=== PATIENT | female | born 1960 | race African-American/Black ===

== ENCOUNTER 2016-09-20 09:17 | Inpatient (IN) | payer OTHER ==
[2016-09-20 09:42] VITALS: BMI 21.6
--- NOTE | 2016-09-20 09:55 | HP ---
CIWA Score - CIWA Score Nausea/Vomitin-Mild Nausea/No Vomiting Muscle Tremors: 3 Anxiety: 4-Mod. Anxious/Guarded Agitation: 1-Slight > Activity Paroxysmal Sweats: 1-Minimal Palms Moist Orientation: 1-Uncertain about Date Tacttile Disturbances: 1-Very Mild Itch/Numbness Auditory Disturbances: 1-Very Mild Visual Disturbances: 1-Very Mild Sensitivity Headache: 2-Mild CIWA-Ar Total Score: 16 Admission ROS BHS - HPI Chief Complaint: I need help to stop drinking, I don't want to get sick Allergies/Adverse Reactions: Allergies Allergy/AdvReac Type Severity Reaction Status Date / Time shellfish derived Allergy Severe Swelling Verified 09/20/16 09:53 No Known Drug Allergies Allergy Verified 09/20/16 09:53 History of Present Illness: 56 yo woman here for detox from alcohol - history of seizure - was in [facility] ED yesterday for seizure - history of black outs. Previously here twice and stayed only one day - states she will complete her treatment this time. Exam Limitations: Clinical Condition - Ebola screening Have you traveled outside of the country in the last 21 days: No Have you had contact with anyone from an Ebola affected area: No Have you been sick,other than usual withdrawal symptoms: No Do you have a fever: No - Review of Systems Constitutional: Loss of Appetite, Night Sweats, Changes in sleep EENT: reports: No Symptoms Reported Respiratory: reports: No Symptoms reported Cardiac: reports: No Symptoms Reported GI: reports: Nausea, Indigestion : reports: Frequency Musculoskeletal: reports: No Symptoms Reported Integumentary: reports: Dryness Neuro: reports: Headache Endocrine: reports: No Symptoms Reported Hematology: reports: No Symptoms Reported Psychiatric: reports: Mood/Affect Appropiate, Agitated, Anxious Other Systems: Reviewed and Negative Patient History - Patient Medical History Hx Anemia: No Hx Asthma: Yes (proventil) Hx Chronic Obstructive Pulmonary Disease (COPD): No Hx Cancer: No Hx Cardiac Disorders: No Hx Congestive Heart Failure: No Hx Hypertension: Yes Hx Hypercholesterolemia: No Hx Pacemaker: No HX Cerebrovascular Accident: No Hx Seizures: Yes (seizure yesterday in [facility] ED) Hx Dementia: No Hx Diabetes: No Hx Gastrointestinal Disorders: No Hx Liver Disease: No Hx Genitourinary Disorders: No Hx Sexually Transmitted Disorders: No Hx Renal Disease (ESRD): No Hx Thyroid Disease: No Hx Human Immunodeficiency Virus (HIV): No Hx Hepatitis C: No Hx Depression: Yes Hx Suicide Attempt: Yes (not sure a few weeks ago - hospitalized [facility]3] x 2 days) Hx Bipolar Disorder: Yes Hx Schizophrenia: No - Patient Surgical History Past Surgical History: Yes Hx Neurologic Surgery: No Hx Cataract Extraction: No Hx Cardiac Surgery: No Hx Lung Surgery: No Hx Breast Surgery: No Hx Breast Biopsy: No Hx Abdominal Surgery: Yes (exp. lap - 2011) Hx Appendectomy: No Hx Cholecystectomy: No Hx Genitourinary Surgery: No Hx Section: Yes (X 1 - 12 YRS. AGO) Hx Orthopedic Surgery: No Anesthesia Reaction: No - PPD History Previous Implant?: Yes Implanted On Prior [facility] Admission?: Yes Date: 02/11/16 PPD to be Administered?: Yes - Reproductive History Patient is a Female of Child Bearing Age (11 -55 yrs old): Yes Last Menstrual Period: 04/08/10 Patient : No - Smoking Cessation Smoking history: Current every day smoker Have you smoked in the past 12 months: Yes Aproximately how many cigarettes per day: 2 Hx Chewing Tobacco Use: No Initiated information on smoking cessation: Yes 'Breaking Loose' booklet given: 09/20/16 (give on floor) - Substance & Tx. History Hx Alcohol Use: Yes Hx Substance Use: No Substance Use Type: Alcohol Hx Substance Use Treatment: Yes (detox) - Substances Abused Alcohol Route: Oral Frequency: Daily Amount used: 1 pint Age of first use: 24 Date of Last Use: 09/19/16 Family Disease History - Family Disease History Family Disease History: [place]: Father ( FROM [place]), Other: Mother ('delusional' ) , Sister (ETOH DEPENDENT ), Daughter (X 3 - DEPENDENT ON ETOH AND MARIJUANA ) Admission Physical Exam BHS - Vital Signs Vital Signs: Vital Signs - 24 hr 09/20/16 09:33 Temperature 96.1 F L Pulse Rate 86 Respiratory 18 Rate Blood Pressure 118/69 - Physical General Appearance: Yes: Nourished, Appropriately Dressed, Mild Distress, Other (no teeth) HEENTM: Yes: EOMI, Normal ENT Inspection, Normocephalic, Normal Voice Respiratory: Yes: Normal Breath Sounds, No Respiratory Distress Neck: Yes: No masses,lesions,Nodules, Trachea in good position Breast: Yes: Breast Exam Deferred Cardiology: Yes: Regular Rhythm, Regular Rate Abdominal: Yes: Soft Genitourinary: Yes: Frequency Back: Yes: Normal Inspection Musculoskeletal: Yes: full range of Motion, Gait Steady Extremities: Yes: Normal Inspection, Normal Range of Motion, Non-Tender Neurological: Yes: Fully Oriented, Alert, Normal Mood/Affect, Normal Response Integumentary: Yes: Normal Color, Dry, Warm Lymphatic: Yes: Within Normal Limits - Diagnostic (1) Alcohol dependence with uncomplicated withdrawal Current Visit: Yes Status: Chronic (2) HTN (hypertension) Current Visit: Yes Status: Chronic Qualifiers: Hypertension type: essential hypertension Qualified Code(s): I10 - Essential (primary) hypertension (3) Seizure disorder Current Visit: Yes Status: Chronic (4) Asthma Current Visit: Yes Status: Chronic Qualifiers: Asthma severity: mild intermittent Asthma complication type: uncomplicated Qualified Code(s): J45.20 - Mild intermittent asthma, uncomplicated Cleared for Admission S - Detox or Rehab [facility] Level of Care: Medically Managed Detox Regimen/Protocol: Librium [facility] Breath Alcohol Content Breath Alcohol Content: 0 Urine Pregancy Test - Result Urine Test Results: Negative- NO Line Present Urine Drug Screen - Results Drug Screen Negative: No Urine Drug Screen Results: BZO-Benzodiazepines, TCA-Tricyclic Antidepress
[2016-09-20] MEDS ORDERED: MAGNESIUM CITRATE 300 ML BOTTLE PO PRN (10:02)
[2016-09-20] MEDS ORDERED: MAG HYDROX/AL HYDROX/SIMETH 30 ML UNIT-DOSE CUP PO PRN (10:02)
[2016-09-20] MEDS ORDERED: guaiFENesin/D-METHORPHAN HB 10 ML UNIT-DOSE CUPS PO PRN (10:02)
[2016-09-20] MEDS ORDERED: MENTHOL/PHENOL 1 EACH UD MM PRN (10:02)
[2016-09-20] MEDS ORDERED: ACETAMINOPHEN 325 MG TABLET (FP) PO PRN (10:02)
[2016-09-20] MEDS ORDERED: MAGNESIUM HYDROX 2400MG/30ML ORAL SUSPENSION 30 ML CUP PO PRN (10:02)
[2016-09-20] MEDS ORDERED: IBUPROFEN 400 MG TABLET (FP) PO PRN (10:02)
[2016-09-20] MEDS ORDERED: P-EPHED 60MG/TRIPROLIDI 2.5MG TABLET PO PRN (10:02)
[2016-09-20] MEDS ORDERED: ALBUTEROL SO4 6.7 GM HFA INHALER IH PRN (10:04)
[2016-09-20] MEDS ORDERED: NICOTINE POLACRILEX 2 MG GUM BUC PRN (10:06)
[2016-09-20] MEDS ORDERED: chlordiazePOXIDE HCL 25 MG CAPSULE PO ONE (11:15)
[2016-09-20] MEDS: NICOTINE 7 MG/24 HOURS TOPICAL PATCH TD SCH (11:24)
[2016-09-20 13:40] LABS: URINE APPEARANCE SLCLOUDY; URINE BILIRUBIN NEGATIVE (NEGATIVE); URINE BLOOD NEGATIVE (NEGATIVE); URINE COLOR DKYELLOW; URINE GLUCOSE (UA) NEGATIVE (NEGATIVE); URINE KETONE NEGATIVE (NEGATIVE); URINE NITRITE NEGATIVE (NEGATIVE); URINE PROTEIN NEGATIVE (NEGATIVE); URINE UROBILINOGEN 2.0 E.U/dl E.U./dl (0.2-1.0)
[2016-09-20 13:43] LABS: URINE LEUK ESTERASE TRACE (NEGATIVE)
[2016-09-20 13:48] LABS: URINE BACTERIA RARE /hpf (NONE SEEN); URINE MUCUS MODERATE; URINE RBC <1 /hpf (0-3); URINE WBC 4 /hpf (3-5); YEAST FEW
[2016-09-20] MEDS: chlordiazePOXIDE HCL 25 MG CAPSULE PO SCH ×2 (17:17→22:36)
[2016-09-20] MEDS ORDERED: diphenhydrAMINE HCL 50 MG CAPSULE PO PRN (22:00)
[2016-09-20] MEDS: THIAMINE HCL 100 MG TABLET (FP) PO SCH (22:36)
[2016-09-20] MEDS: levETIRAcetam 500 MG TABLET (FP) PO SCH (22:36)
[2016-09-20] MEDS: QUEtiapine FUMARATE 50 MG TABLET PO SCH (22:36)
[2016-09-21] MEDS: chlordiazePOXIDE HCL 25 MG CAPSULE PO SCH ×4 (05:55→22:31)
[2016-09-21] MEDS: PRENATAL VITAMINS W/ FOLIC ACID TABLET (FP) PO SCH (09:17)
[2016-09-21] MEDS: amLODIPine BESYLATE 10 MG TABLET (FP) PO SCH (09:18)
[2016-09-21] MEDS: chlordiazePOXIDE HCL 25 MG CAPSULE PO PRN (09:18)
[2016-09-21] MEDS: hydrOXYzine PAMOATE 50 MG CAPSULE (FP) PO PRN ×3 (09:18→22:31)
[2016-09-21] MEDS: ATENOLOL 50 MG TABLET (FP) PO SCH (09:18)
[2016-09-21] MEDS: levETIRAcetam 500 MG TABLET (FP) PO SCH ×2 (09:21→22:31)
[2016-09-21] MEDS: NICOTINE 7 MG/24 HOURS TOPICAL PATCH TD SCH (09:23)
--- NOTE | 2016-09-21 09:47 | EKG ---
Test Reason : Blood Pressure : / mmHG Vent. Rate : 094 BPM Atrial Rate : 094 BPM P-R Int : 270 ms QRS Dur : 098 ms QT Int : 364 ms P-R-T Axes : 068 056 064 degrees QTc Int : 455 ms SINUS RHYTHM WITH 1ST DEGREE A-V BLOCK MODERATE VOLTAGE CRITERIA FOR LVH, MAY BE NORMAL VARIANT EARLY REPOLARIZATION Confirmed by SANTIAGO ZAVALA MD ([id number]) on 09/21/2016 9:47:11 AM Referred By: Confirmed By:SANTIAGO ZAVALA MD
[2016-09-21 10:19] LABS: MCHC 32.2 g/dl (32.0-36.0); RDW 15.9 % (11.6-15.6); WHITE BLOOD COUNT 4.7 K/mm3 (4.0-10.0)
[2016-09-21 10:38] LABS: ALBUMIN 3.8 g/dl (3.4-5.0); ANION GAP 12 (8-16); CALCIUM 8.5 mg/dL (8.5-10.1); CO2 21 mmol/L (21-32); CREATININE 0.7 mg/dL (0.55-1.02); GLUCOSE,RANDOM 121 mg/dL (74-106); SGPT/ALT 17 U/L (12-78)
[2016-09-21 10:40] LABS: ALK PHOS 104 U/L (45-117); BILIRUBIN,TOTAL 0.5 mg/dL (0.2-1.0); TOT PROT 7.1 g/dl (6.4-8.2)
[2016-09-21 10:49] LABS: SGOT/AST 39 U/L (15-37)
[2016-09-21 11:04] LABS: PLATELET ESTIMATE MOD DECREASED (NORMAL)
--- NOTE | 2016-09-21 14:56 | PN ---
[facility] CIWA - CIWA Score Nausea/Vomitin-No Nausea/No Vomiting Muscle Tremors: 4-Moderate,w/Arms Extend Anxiety: 4-Mod. Anxious/Guarded Agitation: 4-Moderately Restless Paroxysmal Sweats: 3 Orientation: 0-Oriented Tacttile Disturbances: 1-Very Mild Itch/Numbness Auditory Disturbances: 0-None Visual Disturbances: 0-None Headache: 0-None Present CIWA-Ar Total Score: 16 BHS Progress Note (SOAP) Subjective: ANXIETY,TREMORS,SWEATING,INTERRUPTED SLEEP,RESTLESS Objective: 09/21/16 14:55 Vital Signs - 8 hr 09/21/16 09/21/16 10:59 14:00 Temperature 99.0 F 97.7 F Pulse Rate 88 75 Respiratory 18 18 Rate Blood Pressure 133/90 145/94 Laboratory Last Values WBC 4.7 K/mm3 (4.0-10.0) 09/21/16 07:20 RBC 4.59 M/mm3 (3.60-5.2) 09/21/16 07:20 Hgb 12.8 GM/dL (10.7-15.3) 09/21/16 07:20 Hct 39.9 % (32.4-45.2) 09/21/16 07:20 MCV 87.0 fl (80-96) 09/21/16 07:20 MCHC 32.2 g/dl (32.0-36.0) 09/21/16 07:20 RDW 15.9 % (11.6-15.6) H D 09/21/16 07:20 Plt Count Civil Engineering Director 09/21/16 07:20 MPV 9.0 fl (7.5-11.1) 09/21/16 07:20 Platelet Estimate Mod decreased (NORMAL) 09/21/16 07:20 Platelet Comment Marked plt clumping 09/21/16 07:20 Sodium 144 mmol/L (136-145) 09/21/16 07:20 Potassium 3.9 mmol/L (3.5-5.1) 09/21/16 07:20 Chloride 111 mmol/L (98-107) H 09/21/16 07:20 Carbon Dioxide 21 mmol/L (21-32) D 09/21/16 07:20 Anion Gap 12 (8-16) 09/21/16 07:20 BUN 8 mg/dL (7-18) 09/21/16 07:20 Creatinine 0.7 mg/dL (0.55-1.02) 09/21/16 07:20 Creat Clearance w eGFR > 60 (>60) 09/21/16 07:20 Random Glucose 121 mg/dL (74-106) H D 09/21/16 07:20 Calcium 8.5 mg/dL (8.5-10.1) 09/21/16 07:20 Total Bilirubin 0.5 mg/dL (0.2-1.0) 09/21/16 07:20 AST 39 U/L (15-37) H D 09/21/16 07:20 ALT 17 U/L (12-78) 09/21/16 07:20 Alkaline Phosphatase 104 U/L (45-117) 09/21/16 07:20 Total Protein 7.1 g/dl (6.4-8.2) 09/21/16 07:20 Albumin 3.8 g/dl (3.4-5.0) 09/21/16 07:20 Urine Color Dkyellow 09/20/16 10:10 Urine Appearance Slcloudy 09/20/16 10:10 Urine pH 5.0 (5.0-8.0) 09/20/16 10:10 Ur Specific [place] 1.026 (1.001-1.035) 09/20/16 10:10 Urine Protein Negative (NEGATIVE) 09/20/16 10:10 Urine Glucose (UA) Negative (NEGATIVE) 09/20/16 10:10 Urine Ketones Negative (NEGATIVE) 09/20/16 10:10 Urine Blood Negative (NEGATIVE) 09/20/16 10:10 Urine Nitrite Negative (NEGATIVE) 09/20/16 10:10 Urine Bilirubin Negative (NEGATIVE) 09/20/16 10:10 Urine Urobilinogen 2.0 e.u/dl E.U./dl (0.2-1.0) H 09/20/16 10:10 Ur Leukocyte Esterase Trace (NEGATIVE) H 09/20/16 10:10 Urine RBC <1 /hpf (0-3) 09/20/16 10:10 Urine WBC 4 /hpf (3-5) 09/20/16 10:10 Ur Epithelial Cells Moderate /hpf (FEW) 09/20/16 10:10 Urine Bacteria Rare /hpf (NONE SEEN) 09/20/16 10:10 Urine Mucus Moderate 09/20/16 10:10 Urine Yeast Few 09/20/16 10:10 RPR Titer Nonreactive (NONREACTIVE) 09/21/16 07:20 LABS NOTED Assessment: 09/21/16 14:56 WITHDRAWAL SX. Plan: CONTINUE DETOX
[2016-09-21] MEDS: QUEtiapine FUMARATE 50 MG TABLET PO SCH (22:32)
[2016-09-21] MEDS: THIAMINE HCL 100 MG TABLET (FP) PO SCH (22:32)
[2016-09-22] MEDS: chlordiazePOXIDE HCL 25 MG CAPSULE PO SCH ×2 (04:52→10:13)
--- NOTE | 2016-09-22 08:57 | CONSULT ---
[facility] Psychiatric Consult - Data Date of interview: 09/22/16 Admission source: [facility] Identifying data: This is 56 years old female with psychiatric hospitalization history iontoxiated with Alcohol and Nicotine Substance Abuse History: - Smoking Cessation. Smoking history: Current every day smoker. Have you smoked in the past 12 months: Yes. Aproximately how many cigarettes per day: 2. Hx Chewing Tobacco Use: No. Initiated information on smoking cessation: Yes. 'Breaking Loose' booklet given: 09/20/16 (give on floor ). - Substance & Tx. History. Hx Alcohol Use: Yes. Hx Substance Use: No. Substance Use Type: Alcohol. Hx Substance Use Treatment: Yes (detox). - Substances Abused. Alcohol. Route: Oral. Frequency: Daily. Amount used: 1 pint. Age of first use: 24. Date of Last Use: 09/19/16 Medical History: Asthma, HTN, Seizure history Psychiatric History: Patient reports history of Bipolar disorder, anxiety and insomnia, reports unclear psychiatric admission for more then 5 years ago at unknown hospital reports taking prior to admission: Seroquel 50mg po qhs Physical/Sexual Abuse/Trauma History: Denies Additional Comment: Seroquel 50mg po qhs Mental Status Exam - Mental Status Exam Alert and Oriented to: Person Cognitive Function: Fair Patient Appearance: Unkempt Mood: Sad Affect: Flat Patient Behavior: Sedated Speech Pattern: Delayed Voice Loudness: Mildly Soft/Quiet Thought Process: Circumstantial Thought Disorder: Being Controlled Hallucinations: Denies Suicidal Ideation: Denies Homicidal Ideation: Denies Insight/Judgement: Fair Sleep: Difficulty falling asleep Appetite: Fair, Weight gain Muscle strength/Tone: Normal Gait/Station: Shuffling Additional Comments: Seroquel 50mg po qhs Psychiatric Findings - Problem List ([address] 1, 2,3) (1) Alcohol dependence with uncomplicated withdrawal Current Visit: Yes Status: Chronic (2) Alcohol-induced mood disorder Current Visit: No Status: Acute (3) Alcohol-induced sleep disorder Current Visit: No Status: Acute (4) Alcohol dependence Current Visit: No Status: Chronic (5) Anxiety disorder Current Visit: No Status: Chronic Qualifiers: Anxiety disorder type: unspecified anxiety disorder Qualified Code(s): F41.9 - Anxiety disorder, unspecified (6) Bipolar disorder Current Visit: No Status: Chronic Qualifiers: Active/Remission status: remission status unspecified Qualified Code(s) : F31.9 - Bipolar disorder, unspecified (7) Nicotine dependence Current Visit: Yes Status: Acute - Initial Treatment Plan Initial Treatment Plan: Seroquel 50mg po qhs
[2016-09-22] MEDS: amLODIPine BESYLATE 10 MG TABLET (FP) PO SCH (10:13)
[2016-09-22] MEDS: PRENATAL VITAMINS W/ FOLIC ACID TABLET (FP) PO SCH (10:13)
[2016-09-22] MEDS: levETIRAcetam 500 MG TABLET (FP) PO SCH ×2 (10:13→22:17)
[2016-09-22] MEDS: ATENOLOL 50 MG TABLET (FP) PO SCH (10:13)
[2016-09-22] MEDS: NICOTINE 7 MG/24 HOURS TOPICAL PATCH TD SCH (10:16)
[2016-09-22] MEDS ORDERED: ZOLPIDEM TARTRATE 5 MG TABLET PO PRN (11:13)
--- NOTE | 2016-09-22 11:15 | PN ---
S CIWA - CIWA Score Nausea/Vomitin-Int. Nausea w/Dry Heave Muscle Tremors: 4-Moderate,w/Arms Extend Anxiety: 4-Mod. Anxious/Guarded Agitation: 4-Moderately Restless Paroxysmal Sweats: 3 Orientation: 0-Oriented Tacttile Disturbances: 0-None Auditory Disturbances: 0-None Visual Disturbances: 0-None Headache: 2-Mild CIWA-Ar Total Score: 21 BHS Progress Note (SOAP) Subjective: nausea, sweats, interrupted sleep, anxiety, tremors Objective: 09/22/16 11:14 Vital Signs - 24 hr 09/21/16 09/21/16 09/21/16 14:00 18:02 21:50 Temperature 97.7 F 97.7 F 98.1 F Pulse Rate 75 89 76 Respiratory 18 18 18 Rate Blood Pressure 145/94 129/87 139/75 09/22/16 09/22/16 09/22/16 00:30 05:05 10:26 Temperature 97.0 F L 97.0 F L Pulse Rate 74 84 Respiratory 18 18 18 Rate Blood Pressure 137/90 149/95 Laboratory Tests 09/20/16 09/21/16 09/21/16 10:10 07:20 07:20 WBC 4.7 RBC 4.59 Hgb 12.8 Hct 39.9 MCV 87.0 MCHC 32.2 RDW 15.9 H D Plt Count [employer] MPV 9.0 Platelet Estimate Mod decreased Platelet Comment Marked plt clumping Sodium 144 Potassium 3.9 Chloride 111 H Carbon Dioxide 21 D Anion Gap 12 BUN 8 Creatinine 0.7 Creat Clearance w eGFR > 60 Random Glucose 121 H D Calcium 8.5 Total Bilirubin 0.5 AST 39 H D ALT 17 Alkaline Phosphatase 104 Ammonia Total Protein 7.1 Albumin 3.8 Urine Color Dkyellow Urine Appearance Slcloudy Urine pH 5.0 Ur Specific [place] 1.026 Urine Protein Negative Urine Glucose (UA) Negative Urine Ketones Negative Urine Blood Negative Urine Nitrite Negative Urine Bilirubin Negative Urine Urobilinogen 2.0 e.u/dl H Ur Leukocyte Esterase Trace H Urine RBC <1 Urine WBC 4 Ur Epithelial Cells Moderate Urine Bacteria Rare Urine Mucus Moderate Urine Yeast Few RPR Titer 09/21/16 09/22/16 07:20 08:00 WBC RBC Hgb Hct MCV MCHC RDW Plt Count MPV Platelet Estimate Platelet Comment Sodium Potassium Chloride Carbon Dioxide Anion Gap BUN Creatinine Creat Clearance w eGFR Random Glucose Calcium Total Bilirubin AST ALT Alkaline Phosphatase [place] 33.22 H Total Protein Albumin Urine Color Urine Appearance Urine pH Ur Specific [place] Urine Protein Urine Glucose (UA) Urine Ketones Urine Blood Urine Nitrite Urine Bilirubin Urine Urobilinogen Ur Leukocyte Esterase Urine RBC Urine WBC Ur Epithelial Cells Urine Bacteria Urine Mucus Urine Yeast RPR Titer Nonreactive Assessment: 09/22/16 11:15 withdrawal sx Plan: cont detox, fluids, encourage ambulation
[2016-09-22] MEDS ORDERED: CYCLOBENZAPRINE HCL 10 MG TABLET (FP) PO SCH (14:00)
[2016-09-22] MEDS ORDERED: HYDROCHLOROTHIAZIDE 25 MG TABLET (FP) PO ONE (14:36)
[2016-09-22] MEDS: chlordiazePOXIDE 5 MG CAPSULE PO SCH ×2 (17:21→22:17)
[2016-09-22] MEDS: chlordiazePOXIDE HCL 25 MG CAPSULE PO PRN (19:33)
[2016-09-22] MEDS: THIAMINE HCL 100 MG TABLET (FP) PO SCH (22:17)
[2016-09-22] MEDS: NAPROXEN 500 MG TABLET (FP) PO SCH (22:17)
[2016-09-22] MEDS: QUEtiapine FUMARATE 50 MG TABLET PO SCH ×2 (22:17→22:52)
[2016-09-23] MEDS: chlordiazePOXIDE 5 MG CAPSULE PO SCH ×2 (05:53→10:47)
[2016-09-23] MEDS: LOPERAMIDE HCL 2 MG CAPSULE PO PRN ×2 (06:37→14:33)
--- NOTE | 2016-09-23 10:33 | PN ---
BHS Progress Note (SOAP) Subjective: diarrhea sweats interrupted sleep Objective: 09/23/16 10:34 Vital Signs Temperature 97.2 F L 09/23/16 09:39 Pulse Rate 99 H 09/23/16 09:39 Respiratory Rate 18 09/23/16 09:39 Blood Pressure 141/102 09/23/16 09:39 O2 Sat by Pulse Oximetry (%) awake/alert ambulating no acute distress Assessment: 09/23/16 10:35 withdrawal sx Plan: continue detox increase fluids immodium prn d/c in am
[2016-09-23] MEDS: PRENATAL VITAMINS W/ FOLIC ACID TABLET (FP) PO SCH (10:46)
[2016-09-23] MEDS: amLODIPine BESYLATE 10 MG TABLET (FP) PO SCH (10:46)
[2016-09-23] MEDS: ATENOLOL 50 MG TABLET (FP) PO SCH (10:46)
[2016-09-23] MEDS: levETIRAcetam 500 MG TABLET (FP) PO SCH ×2 (10:46→22:18)
[2016-09-23] MEDS: NAPROXEN 500 MG TABLET (FP) PO SCH ×2 (10:46→22:16)
[2016-09-23] MEDS: HYDROCHLOROTHIAZIDE 25 MG TABLET (FP) PO SCH (10:47)
[2016-09-23] MEDS: NICOTINE 7 MG/24 HOURS TOPICAL PATCH TD SCH (10:47)
[2016-09-23] MEDS: chlordiazePOXIDE HCL 10 MG CAPSULE PO SCH ×2 (17:24→22:16)
[2016-09-23] MEDS: THIAMINE HCL 100 MG TABLET (FP) PO SCH (22:15)
[2016-09-23] MEDS: QUEtiapine FUMARATE 50 MG TABLET PO SCH ×2 (23:07→23:08)
[2016-09-24] MEDS: chlordiazePOXIDE HCL 10 MG CAPSULE PO SCH (05:21)
[2016-09-24 06:33] VITALS: BP 116/78; PULSE 78; TEMP 97.3
--- NOTE | 2016-09-24 08:46 | DS ---
[facility] Detox Discharge Summary Admission Date: 09/20/16 Discharge Date: 09/24/16 - History Present History: Alcohol Dependence - Physical Exam Results Vital Signs: Vital Signs Temperature 97.3 F L 09/24/16 06:32 Pulse Rate 78 09/24/16 06:32 Respiratory Rate 18 09/24/16 06:32 Blood Pressure 116/78 09/24/16 06:32 O2 Sat by Pulse Oximetry (%) - Treatment Hospital Course: Detox Protocol Followed, Detoxed Safely, Responded well, Discharged Condition Good, Rehab Referral Accepted - Medication Discharge Medications: Ambulatory Orders Albuterol Sulfate Inhaler - [Ventolin Hfa Inhaler -] 1 - 2 inh PO QID 02/09/16 Amlodipine Besylate [Norvasc -] 10 mg PO DAILY 09/20/16 Atenolol [Tenormin -] 50 mg PO DAILY 09/20/16 Levetiracetam [Keppra] 500 mg PO BID 09/23/16 Quetiapine Fumarate [Seroquel] 50 mg PO HS 09/23/16 - Diagnosis (1) Nicotine dependence Current Visit: Yes Status: Chronic Qualifiers: Nicotine product type: cigarettes Substance use status: uncomplicated Qualified Code(s): F17.210 - Nicotine dependence, cigarettes, uncomplicated (2) Alcohol dependence with uncomplicated withdrawal Current Visit: Yes Status: Chronic (3) Asthma Current Visit: Yes Status: Chronic Qualifiers: Asthma severity: mild intermittent Asthma complication type: uncomplicated Qualified Code(s): J45.20 - Mild intermittent asthma, uncomplicated (4) HTN (hypertension) Current Visit: Yes Status: Chronic Qualifiers: Hypertension type: essential hypertension Qualified Code(s): I10 - Essential (primary) hypertension (5) Seizure disorder Current Visit: Yes Status: Chronic (6) Alcohol-induced mood disorder Current Visit: No Status: Acute (7) Alcohol-induced sleep disorder Current Visit: No Status: Acute (8) Active asthma Current Visit: No Status: Chronic (9) Alcohol dependence Current Visit: No Status: Chronic (10) Anxiety disorder Current Visit: No Status: Chronic Qualifiers: Anxiety disorder type: unspecified anxiety disorder Qualified Code(s): F41.9 - Anxiety disorder, unspecified (11) Bipolar disorder Current Visit: No Status: Chronic Qualifiers: Active/Remission status: remission status unspecified Qualified Code(s) : F31.9 - Bipolar disorder, unspecified (12) Insomnia Current Visit: No Status: Chronic Qualifiers: Insomnia type: unspecified Qualified Code(s): G47.00 - Insomnia, unspecified - AMA Did Patient Leave Against Medical Advice: No
[2016-09-24] MEDS: NAPROXEN 500 MG TABLET (FP) PO SCH (10:21)
[2016-09-24] MEDS: levETIRAcetam 500 MG TABLET (FP) PO SCH (10:21)
[2016-09-24] MEDS: HYDROCHLOROTHIAZIDE 25 MG TABLET (FP) PO SCH (10:21)
[2016-09-24] MEDS: amLODIPine BESYLATE 10 MG TABLET (FP) PO SCH (10:22)
[2016-09-24] MEDS: PRENATAL VITAMINS W/ FOLIC ACID TABLET (FP) PO SCH (10:22)
[2016-09-24] MEDS: ATENOLOL 50 MG TABLET (FP) PO SCH (10:22)
[2016-09-24] MEDS: NICOTINE 7 MG/24 HOURS TOPICAL PATCH TD SCH (10:23)
== END 2016-09-24 10:39 | disposition home or self-care (01) | DRG 775 ==
LOC: YASAS 09:17 → Y6N 10:12
PROVIDERS: ADMIT Internal Medicine Addiction Medicine; ATTEND Internal Medicine Addiction Medicine
PROC: HZ2ZZZZ Detoxification Services for Substance Abuse Treatment (ICD-10-PCS; principal; 2016-09-24)
DX: F10.230 Alcohol dependence with withdrawal, uncomplicated (principal); F17.210 Nicotine dependence, cigarettes, uncomplicated; F19.24 Other psychoactive substance dependence with psychoactive substance-induced mood disorder; F19.282 Other psychoactive substance dependence with psychoactive substance-induced sleep disorder; F41.9 Anxiety disorder, unspecified; F31.9 Bipolar disorder, unspecified; G47.00 Insomnia, unspecified; I10 Essential (primary) hypertension; J45.909 Unspecified asthma, uncomplicated; G40.909 Epilepsy, unspecified, not intractable, without status epilepticus; Z59.0 Homelessness
CPT/HCPCS: 36415; 80053; 81003; 81015; 82140; 85027; 86593; 93005; 93010